=== PATIENT | male | born 1950 | race Caucasian/White ===

== ENCOUNTER → 2019-02-09 | Outpatient (CLI) | payer OTHER | LOC: RAD 08:33 | DX: R10.30 Lower abdominal pain, unspecified (principal); R19.7 Diarrhea, unspecified ==

== ENCOUNTER → 2019-10-26 | Outpatient (CLI) | payer OTHER | LOC: ULTRA 13:48 | DX: I86.1 Scrotal varices (principal); N45.1 Epididymitis; N43.3 Hydrocele, unspecified ==

== ENCOUNTER → 2019-12-16 | Outpatient (CLI) | payer OTHER ==
[~2019-12-16] VITALS: Ht 175.3 cm; Wt 63.5 kg
[~2019-12-16] MED LIST: AMILORIDE HCL-1 EACH PO
--- NOTE | 2019-12-16 10:57 | P ---
[facility] [place] [address] PROCEDURE REPORT Name: CATRINA ESTRADA Room #: [facility] [id number] Admission: 12/16/19 Attend Phys: Jeff Hammer Discharge: Date of : 54 Report #: [id number] THIS REPORT FOR: //name// CC: Jeff Roberts MD DATE OF SERVICE: 12/16/2019 PROCEDURE PERFORMED: Upper endoscopy with biopsies. HISTORY OF PRESENT ILLNESS: The patient is a 69-year-old male with intermittent midepigastric abdominal pain. Denies any dysphagia or significant heartburn symptoms. He has noticed some symptoms worse at night and after caffeine. No previous history of upper endoscopy. He presents today for routine followup, history of colon polyps for colonoscopy as well. PROCEDURE: The risks and benefits of the procedure were explained to the patient, those risks including but not limited to bleeding, perforation and the risk of sedation. He understood these risks and gave informed consent. Sedation was given using propofol per anesthesia. Next, using a standard Olympus upper endoscope, the scope was placed in the patient's mouth and advanced under direct vision through the esophagus, stomach and into the second portion of the duodenum. The larynx was normal in appearance. The upper and mid esophagus was normal. In the distal esophagus at the GE junction, grade A erosive esophagitis was noted. There was a mild diffuse gastritis noted throughout the body. Biopsies were obtained. The pylorus was normal and patent. In the duodenal bulb, 2 clean white based ulcers ranging 8 mm and 1 cm in size were noted. No evidence of bleeding. The second portion of the duodenum was normal. Biopsies were obtained to rule out the possibility of celiac sprue. The scope was then withdrawn and the procedure terminated. The patient tolerated the procedure well. IMPRESSION: 1. Two duodenal bulb ulcers. 2. Mild gastritis. 3. Grade A erosive esophagitis. 4. Otherwise, normal upper endoscopy. RECOMMENDATIONS: 1. Await biopsy results. 2. We would recommend daily PPI therapy. 3. We will proceed with colonoscopy next today. [facility] [address] [place] [address] PROCEDURE REPORT Name: CATRINA ESTRADA Room #: REG DONALD Gates#: [id number] Admission: 12/16/19 Attend Phys: Jeff Hammer Discharge: Date of : 54 Report #: [id number] Thank you for allowing me to participate in his care. <ELECTRONICALLY SIGNED> By: Jeff Pacheco MD 12/16/19 1057 0930 1003 Jeff Pacheco MD /nt
--- NOTE | 2019-12-18 09:00 | P ---
[facility] [address] PROCEDURE REPORT Name: CATRINA ESTRADA Room #: REG [facility] CENTERPeterson#: [id number] Admission: 12/16/19 Attend Phys: Jeff Hammer Discharge: Date of : 54 Report #: [id number] THIS REPORT FOR: //name// CC: Jeff Roberts MD DATE OF SERVICE: 12/16/2019 PROCEDURE PERFORMED: Colonoscopy. HISTORY OF PRESENT ILLNESS: The patient is a 69-year-old male with a history of colon polyps several years ago. He is here for routine followup. He was complaining of mid epigastric abdominal pain. Upper endoscopy was just performed, which showed duodenal ulcers. No family history of colon cancer. His weight has been stable. DESCRIPTION OF PROCEDURE: The risks and benefits of the procedure were explained to the patient, those risks including but not limited to bleeding, perforation and the risk of sedation. He understood these risks and gave informed consent. Sedation was given using propofol per anesthesia. Next, a digital rectal exam was initially performed, which was normal. Next, using a standard Olympus colonoscope, the scope was placed in the patient's anus and advanced under direct vision to the cecum. The overall prep was excellent. The cecum and ileocecal valve were normal in appearance. Ascending, transverse, descending and sigmoid colon were all normal. The rectal mucosa was normal. On retroflexion, no abnormalities were noted. The scope was then withdrawn and the procedure terminated. The patient tolerated the procedure well. IMPRESSION: Normal colonoscopy. RECOMMENDATIONS: Repeat colonoscopy in 10 years. Thank you for allowing me to participate in his care. <ELECTRONICALLY SIGNED> By: Jeff Pacheco MD 12/18/19 0900 [id number] [id number] Jeff Pacheco MD /nt
--- NOTE | 2019-12-18 16:06 | PATH ---
[facility] [place] [address] PATHOLOGY RPT PROCEDURE Name: BELLO ESTRADA Room #: REG Kristen [place].#: [id number] Admission: 12/16/19 Date of : 54 Discharge: Report #: [id number] Path Case #: [id number] [facility] Accession Number: [id number] . 01 Material submitted: . PART A: duodenum - BX DUODENUM PART B: stomach - BX GASTRITIS . 01 Clinical history: . Pre-op diagnosis: Abdominal pain, history of polyps Post-op diagnosis: Gastritis, duodenal ulcers, normal colon A. R/O sprue B. R/O H. pylori . 02 Diagnosis: A. Small bowel mucosa, duodenum rule out sprue, endoscopic biopsy: - No significant diagnostic abnormalities present. - Negative for villous blunting or increase in intraepithelial lymphocytes. . B. Gastric mucosa, gastritis rule out H. pylori, endoscopic biopsy: - Mild chronic gastritis with features of reactive gastropathy. - Negative for intestinal metaplasia or atrophy. - Negative for Helicobacter pylori (properly controlled immunohistochemical stain performed). (IUV/db; 12/18/2019) LBQ 12/18/2019 1228 Local . 02 Electronically signed: . Payton Wayne MD, Pathologist NPI- [id number] . 01 Gross description: . A. The specimen is received in formalin, labeled "Bello Estrada, biopsy duodenum, R/O sprue". Received are four segments of pale herrera soft tissue ranging in size from 0.3 to 0.5 cm in maximum dimensions. The specimen is submitted entirely in cassette A1. . B. The specimen is received in formalin, labeled "Bello Estrada, biopsy gastritis, R/O H. pylori". Received are four segments of pale herrera soft tissue ranging in size from 0.2 to 0.8 cm in maximum dimensions. The specimen is submitted entirely in cassette B1. (CAA; 12/17/2019) QAC/QAC 12/17/2019 0942 Local . 02 Pathologist provided ICD-10: K29.50 [place] [address] PATHOLOGY RPT PROCEDURE Name: BELLO ESTRADA Room #: REG DONALD Gates#: [id number] Admission: 12/16/19 Date of : 54 Discharge: Report #: [id number] Path Case #: [id number] . 02 CPT . 711634, [id number], [id number] Specimen Comment: A courtesy copy of this report has been sent to [phone], [phone] Specimen Comment: [phone] Specimen Comment: Report sent to / DR MUNOZ Performed at: [address], [place] [id number] MD Anthony Crandall MD Phone: [phone] Performed at: [address] [id number] MD Payton Wayne MD Phone: [phone]
== END | disposition home or self-care (01) ==
LOC: GI 07:45
DX: Z12.11 Encounter for screening for malignant neoplasm of colon (principal); Z86.010 Personal history of colon polyps; K29.50 Unspecified chronic gastritis without bleeding; K31.9 Disease of stomach and duodenum, unspecified; K26.9 Duodenal ulcer, unspecified as acute or chronic, without hemorrhage or perforation; K21.9 Gastro-esophageal reflux disease without esophagitis; K22.10 Ulcer of esophagus without bleeding; Z85.820 Personal history of malignant melanoma of skin; Z98.890 Other specified postprocedural states; Z79.899 Other long term (current) drug therapy; Z88.8 Allergy status to other drugs, medicaments and biological substances
CPT/HCPCS: 62110; 62900

== ENCOUNTER → 2020-07-21 | Outpatient (CLI) | payer OTHER | LOC: LAB 10:55 | PROVIDERS: ATTEND Family Medicine | DX: Z20.828 Contact with and (suspected) exposure to other viral communicable diseases (principal) ==